=== PATIENT | male | born 1975 | race Caucasian/White ===

== ENCOUNTER → 2023-02-17 08:27 | Outpatient (CLI) | payer SELFPAY ==
--- NOTE | ~2023-02-17 | MR_ITS ---
EXAMINATION: MR knee LT wo con DATE: 02/17/2023 08:58 INDICATION: Chronic left knee pain TECHNIQUE: Magnetic resonance imaging (MRI) of the left knee was performed without intravenous contra st. Sequences included coronal PD-weighted FSE, coronal PD-weighted FS FSE, sagittal T2-weighted FSE , sagittal PD-weighted FS FSE and axial PD weighted fat saturated FSE. COMPARISON: None. FINDINGS: Medial compartment: Complex tear of the body and posterior horn of the medial meniscus with displacement of a meniscal fl ap arising from the small posterior horn and which is flipped posterior superiorly from the region of the posterior root. Shallow chondral fissuring along the anterior to central weightbearing medial fe moral condyle. Lateral compartment: Likely complex tear at the posterior horn of the lateral meniscus which includes a longitudinal horiz ontal tear plane extending to the cephalad articular surface of the posterior horn of the lateral men iscus which appears to extend abnormal increased lateral extension of the separation between the port ions of the posterior horn attachment of the posterior root and the portion contiguous with the poste rior meniscal femoral ligaments of [place]. There appears be a second small radial tear plane along the inner third of the medial side of the posterior horn near the posterior root. Articu lar cartilage is normal. Patellofemoral compartment: Shallow chondral fissuring involving less than 50% the cartilage thickness at the patellar apical rid ge and lateral facet. Deeper chondral fissure involving greater than 50% the cartilage thickness at t he caudal aspect of the trochlear groove. Shallow chondral surface irregularity along the medial troc hlea. Ligaments and tendons: Anterior and posterior cruciate ligaments are normal. The medial collateral ligament and fibular ivy ateral ligament complex are normal. The extensor mechanism is normal. The visualized medial and later al hamstring tendons as well as the iliotibial band are normal. Fluid: Small left knee joint effusion. No loose osteochondral bodies identified. Osseous/other: Normal marrow signal. No fracture or pathologic marrow replacing process. IMPRESSION: 1. Complex tears of the medial and lateral menisci. 2. 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 Reviewed, dictated and finalized at location A. IMPRESSION: 1. Complex tears of the medial and lateral menisci. 2. Mild osteoarthritis with moderate grade chondromalacia in the medial and pat ellofemoral compartments.
== END ==
PROVIDERS: PCP Orthopaedic Surgery; Visit Provider Orthopaedic Surgery
DX: M25.562 Pain in left knee (principal); G89.29 Other chronic pain; S83.282A Other tear of lateral meniscus, current injury, left knee, initial encounter; S83.242A Other tear of medial meniscus, current injury, left knee, initial encounter; M17.12 Unilateral primary osteoarthritis, left knee; M94.262 Chondromalacia, left knee
CPT/HCPCS: 73721